=== PATIENT | male | born 1980 | race Two or more races ===

== ENCOUNTER 2019-07-25 13:11 | Emergency (ER) | payer OTHER ==
[2019-07-25] MEDS ORDERED: Ondansetron INJ* 2 MG/ML VIAL IV ONE (15:57)
[2019-07-25] MEDS ORDERED: NS 0.9% 1000 ML** 1,000 ML IV ONE (15:57)
[2019-07-25] MEDS ORDERED: Ketorolac INJ* 30 MG/ML 1 ML VIAL IV ONE (15:57)
[2019-07-25] MEDS ORDERED: Lidocaine 2% VISCOUS* 15 ML UDC PO ONE (16:03)
[2019-07-25] MEDS ORDERED: Al Hydrox/Mg Hydrox/Simet LIQ* 30 ML UDC PO ONE (16:03)
[2019-07-25] MEDS ORDERED: Pantoprazole IV* 40 MG IV ONE (16:04)
--- NOTE | 2019-07-25 16:16 | ED ---
GI/ HPI - HPI Summary HPI Summary: 39-year-old male presents with epigastric pain today. He states that he has a history of epigastric pain that resolved with nexium. States he took the nexium but it did not resolve his pain. He did not eat anything different. he admits to nausea but no vomiting. No fevers. No diarrhea constipation. No chest pain or shortness of breath. Has no medical conditions. No previous belly surgeries. - History of Current Complaint Chief Complaint: EDAbdPain Time Seen by Provider: 07/25/19 15:56 Stated Complaint: STOMACH PAINS PER PT Pain Intensity: 8 - Allergy/Home Medications Allergies/Adverse Reactions: Allergies Allergy/AdvReac Type Severity Reaction Status Date / Time No Known Allergies Allergy Verified 07/25/19 13:19 PMH/Surg Hx/FS Hx/Imm Hx Endocrine/Hematology History: Denies: Hx Anticoagulant Therapy Respiratory History: Denies: Hx Asthma Infectious Disease History: No Infectious Disease History: Denies: Traveled Outside the [place] in Last 30 Days - Family History Known Family History: Positive: Non-Contributory - Social History Alcohol Use: Occasionally Substance Use Type: Reports: None Review of Systems Negative: Fever Negative: Chest Pain Negative: Shortness Of Breath Positive: Abdominal Pain, Nausea. Negative: Vomiting, Diarrhea All Other Systems Reviewed And Are Negative: Yes Physical Exam Triage Information Reviewed: Yes Vital Signs On Initial Exam: Initial Vitals Temp Pulse Resp BP Pulse Ox 97.0 F 77 18 140/92 98 07/25/19 13:12 07/25/19 13:12 07/25/19 13:12 07/25/19 13:12 07/25/19 13:12 Vital Signs Reviewed: Yes Appearance: Positive: Well-Appearing Skin: Positive: Warm, Dry Head/Face: Positive: Normal Head/Face Inspection Eyes: Positive: Normal, Conjunctiva Clear ENT: Positive: Pharynx normal Respiratory/Lung Sounds: Positive: Clear to Auscultation, Breath Sounds Present Cardiovascular: Positive: Normal, RRR Abdomen Description: Positive: Nontender, Soft Bowel Sounds: Positive: Present Musculoskeletal: Positive: Normal Neurological: Positive: Normal Psychiatric: Positive: Normal Procedures - Sedation Patient Received Moderate/Deep Sedation with Procedure: No Diagnostics - Vital Signs Vital Signs Temp Pulse Resp BP Pulse Ox 07/25/19 14:58 98.6 F 83 14 140/93 98 07/25/19 13:12 97.0 F 77 18 140/92 98 - Laboratory Result Diagrams: 07/25/19 15:52 07/25/19 15:52 Lab Statement: Any lab studies that have been ordered have been reviewed, and results considered in the medical decision making process. Re-Evaluation - Re-Evaluation First Eval Re-Evaluation Time: 16:52 Change: Improved Comment: feeling better, nontender abd still GIGU Course/Dx - Course Course Of Treatment: 39-year-old male presents with epigastric pain today. He states that he has a history of epigastric pain that resolved with nexium. States he took. the nexium but it did not resolve his pain. He did not eat anything different. he admits to nausea but no vomiting. No fevers. No diarrhea constipation. No chest pain or shortness of breath. Has no medical conditions. No previous belly surgeries. On exam nontender abdomen. White blood cell count 13. CRP normal. Amylase lipase normal. Lfts slightly elevated. Gave GI cocktail Protonix and Toradol and pain is resolved. On repeat exam still nontender abdomen. We'll prescribe Maalox and told to take Nexium more consistently. Patient understands agrees plan. - Diagnoses Differential Diagnoses - Male: Gastritis, Gastroenteritis (Viral), Pancreatitis Provider Diagnoses: Abdominal pain Discharge ED - Sign-Out/Discharge Documenting (check all that apply): Patient Departure - Discharge Plan Condition: Good Disposition: HOME Prescriptions: Al Hydrox/Mg Hydrox/Simet LIQ* [Maalox Plus*] 30 ml PO Q6H PRN #1 udc PRN Reason: Dyspepsia Patient Education Materials: Epigastric Pain (ED) Referrals: Iveth Bojorquez MD [Primary Care Provider] - Wilfredo Warren MD [Medical Doctor] - Additional Instructions: Take nexium once a day Take Maalox 30ml every 6 hours for epigastric pain as needed Follow up with GI if no improvement Return to ED if develop fever or any new or worsening symptoms - Billing Disposition and Condition Condition: GOOD Disposition: Home - Attestation Statements Provider Attestation: I was available for consultation for this patient. I did not evaluate the patient or participate in any medical decision making or disposition decisions unless I am specifically named in the chart as having consulted on the patient. If I have consulted on the patient, please see my own ED note on the patient encounter. Dania Monterroso MD
[2019-07-25 16:19] LABS: ABS Eosinophils 0.1 10^3/ul (0-0.6); ABS Lymphocytes 1.4 10^3/ul (1.0-4.8); ABS Monocytes 0.6 10^3/ul (0-0.8); ABS Neutrophils 11.2 10^3/ul (1.5-7.7); Eosinophil % 0.8 %; Hematocrit 48 % (42-52); Hemoglobin 16.4 g/dL (14.0-18.0); Lymphocyte % 10.8 %; Mean Corpuscular HGB Conc 34 g/dL (31-36); Mean Corpuscular Hemoglobin 30 pg (27-31); Mean Corpuscular Volume 86 fL (80-94); Mean Platelet Volume 7.8 fL (7.4-10.4); Platelet Count 227 10^3/uL (150-450); Red Blood Count 5.54 10^6 /uL (4.18-5.48); Red Cell Distribution Width 14 % (10-15); White Blood Count 13.4 10^3/uL (3.5-10.8)
[2019-07-25 16:36] LABS: ALT 126 U/L (7-52); AST 46 U/L (13-39); Albumin 4.6 g/dL (3.2-5.2); Albumin/Globulin Ratio 1.5 (1-3); Alkaline Phosphatase 68 U/L (34-104); Amylase 27 U/L (29-103); Anion Gap 8 mmol/L (2-11); Blood Urea Nitrogen 17 mg/dL (6-24); C Reactive Protein 2.54 mg/L (<8.01); CO2 Carbon Dioxide 24 mmol/L (22-32); Calcium 9.4 mg/dL (8.6-10.3); Chloride 104 mmol/L (101-111); EGFR African American 129.7 (>60); EGFR Non-African American 107.2 (>60); Glucose 124 mg/dL (70-100); Sodium 136 mmol/L (135-145); Total Protein 7.6 g/dL (6.4-8.9)
[2019-07-25 17:10] VITALS: BP 124/80
== END 2019-07-25 17:03 | disposition home or self-care (01) ==
LOC: ED 13:11
DX: R10.13 Epigastric pain (principal)
CPT/HCPCS: 36415; 80053; 82150; 83605; 83690; 85025; 86140; 96361; 96374; 96375; 99283; A9270-GY; J1885; J2405